=== PATIENT | male | born 1995 | race African-American/Black ===

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

== ENCOUNTER 2017-01-16 12:22 | Emergency (ER) | payer SELFPAY ==
[~2017-01-16] VITALS: Ht 180.3 cm; Wt 79.4 kg
[~2017-01-16 12:22] MED LIST: CIPR500T94 PO
--- NOTE | 2017-01-16 12:42 | PHYS DOC ---
Past Medical History Past Medical History: No Pertinent History Past Surgical History: No Surgical History Alcohol Use: None Drug Use: None Adult General Chief Complaint Chief Complaint: SEXUALLY TRANSMITTED DISEASE HPI HPI Patient is a 21 year old male presents emergency department stating that of his sexual partners contacted him and told him that she had chlamydia. Patient states that he has 3 sexual partners. He states that he's been having green penile drainage for the last 3 days. He denies any fever, chills or any nausea vomiting. He states I'm here to be treated for sexual transmitted infections. Review of Systems Review of Systems Constitutional: Denies fever or chills [] Eyes: Denies change in visual acuity, redness, or eye pain [] HENT: Denies nasal congestion or sore throat [] Respiratory: Denies cough or shortness of breath [] Cardiovascular: No additional information not addressed in HPI [] GI: Denies abdominal pain, nausea, vomiting, bloody stools or diarrhea [] : Denies dysuria or hematuria [] Musculoskeletal: Denies back pain or joint pain [] Integument: Denies rash or skin lesions [] Neurologic: Denies headache, focal weakness or sensory changes [] Endocrine: Denies polyuria or polydipsia [] Current Medications Current Medications Current Medications Medications (Trade) Dose Ordered Sig/Ana Luisa Start Time Stop Time Status Last Admin Dose Admin Azithromycin (Zithromax) 1,000 mg 1X ONCE 01/16/17 12:45 01/16/17 12:48 DC Ceftriaxone Sodium (Rocephin Im) 250 mg 1X ONCE 01/16/17 12:45 01/16/17 12:48 DC Metronidazole (Flagyl) 2,000 mg 1X ONCE 01/16/17 12:45 01/16/17 12:48 DC Allergies Allergies Allergies Coded Allergies Type Severity Reaction Last Updated Verified No Known Drug Allergies 02/08/16 No Physical Exam Physical Exam Constitutional: Well developed, well nourished, no acute distress, non-toxic appearance. [] HENT: Normocephalic, atraumatic, bilateral external ears normal, oropharynx moist, no oral exudates, nose normal. [] Eyes: PERRLA, EOMI, conjunctiva normal, no discharge. [] Neck: Normal range of motion, no tenderness, supple, no stridor. [] Cardiovascular:Heart rate regular rhythm, no murmur [] Lungs & Thorax: Bilateral breath sounds clear to auscultation [] Skin: Warm, dry, no erythema, no rash. [] Back: No tenderness Extremities: No tenderness, no cyanosis, no clubbing, ROM intact, no edema. [] Neurologic: Alert and oriented X 3, normal motor function, normal sensory function, no focal deficits noted. [] Psychologic: Affect normal, judgement normal, mood normal. [] Lesions noted no testicular tenderness noted. Exam completed with Julia GARIBAY at bedside Current Patient Data Vital Signs Vital Signs Date Time Temp Pulse Resp B/P (MAP) Pulse Ox O2 Delivery O2 Flow Rate FiO2 01/16/17 12:50 97.6 72 16 97 Room Air 97.6 Lab Values Laboratory Tests Test 01/16/17 12:50 Urine Collection Type Unknown Urine Color Yellow Urine Clarity Clear Urine pH 6.0 Urine Specific [place] 1.020 Urine Protein Negative mg/dL (NEG-TRACE) Urine Glucose (UA) Negative mg/dL (NEG) Urine Ketones (Stick) Negative mg/dL (NEG) Urine Blood Negative (NEG) Urine Nitrite Negative (NEG) Urine Bilirubin Negative (NEG) Urine Urobilinogen Dipstick 0.2 mg/dL (0.2 mg/dL) Urine Leukocyte Esterase Small (NEG) Urine RBC 0 /HPF (0-2) Urine WBC >40 /HPF (0-4) Urine Bacteria 0 /HPF (0-FEW) Urine Mucus Mod /LPF EKG EKG [] Radiology/Procedures Radiology/Procedures [] Course & Med Decision Making Course & Med Decision Making Pertinent Labs and Imaging studies reviewed. (See chart for details) Urine was positive for small amount leukocyte esterase. Patient will be placed on Cipro at discharge. He was instructed to refrain from sexual intercourse for the next 2 weeks and 2 weeks after each one of his partners have been treated. Patient was also instructed to use condoms to prevent sexually transmitted infections from occurring. Signs and symptoms to return emergency department was provided. Patient was instructed to drink plenty of fluids such as water and cranberry juice. Avoid coverages cocktail, coronary beverages, citrus fruits and alcohol sees her considered irritants to the bladder. Patient was also instructed to notify his sexual partners in regards to being treated for sexually transmitted infection. Dragon Disclaimer Dragon Disclaimer This electronic medical record was generated, in whole or in part, using a voice recognition dictation system. Departure Departure Impression: Primary Impression: Concern about STD in male without diagnosis Additional Impression: UTI (urinary tract infection) Disposition: 01 HOME, SELF-CARE Condition: STABLE Referrals: NO PCP (PCP) Patient Instructions: Sexually Transmitted Disease, [id number], Urinary Tract Infection, [id number] Additional Instructions: You've been treated for sexual transmitted infections as well as a urinary tract infection. You need to notify your sexual partners in regards to being treated for STD. Medication as prescribed. Avoid sexual activity for the next 2 weeks. It is advisable that you use condoms to prevent sexually transmitted infections. Drink plenty of fluids such as water and cranberry juice. Avoid cranberry juice cocktail, carbonated beverages, caffeine, alcohol, and citrus fruits disease are considered irritants to the bladder. Follow-up through primary care physician next 7-10 days. Return back to emergency prior signs symptoms of become worse. Scripts Ciprofloxacin Hcl (CIPRO) 500 Mg Tablet 1 TAB PO BID, #14 TAB Prov: SUSY ROMAN APRN 01/16/17 Problem Qualifiers SUSY ROMAN APRN January 16, 2017 12:42
[2017-01-16] MEDS ORDERED: cefTRIAXone IM 250 MG VIAL IM ONE (12:45)
[2017-01-16] MEDS ORDERED: AZITHROMYCIN 250 MG TABLET. PO ONE (12:45)
[2017-01-16] MEDS ORDERED: metroNIDAZOLE 500 MG TABLET PO ONE (12:45)
[2017-01-16 12:59] LABS: BILIRUBIN,URINE NEGATIVE (NEG); GLUCOSE,URINE NEGATIVE (NEG); NITRITE,URINE NEGATIVE (NEG); PROTEIN,URINE NEGATIVE (NEG-TRACE); UROBILINOGEN,URINE 0.2 mg/dL (0.2 mg/dL)
[2017-01-16 13:12] LABS: BACTERIA,URINE 0 /HPF (0-FEW); RBC,URINE 0 /HPF (0-2); WBC,URINE >40 /HPF (0-4)
[2017-01-16] MEDS ORDERED: CIPR500T94 PO (13:29)
== END 2017-01-16 13:50 | disposition home or self-care (01) ==
LOC: ER 12:54
DX: N39.0 Urinary tract infection, site not specified (principal)
CPT/HCPCS: 81001; 87086; 96372; 99284; J0696; Q0144

== ENCOUNTER 2017-08-31 15:37 | Emergency (ER) | payer SELFPAY ==
[2017-08-31 17:15] LABS: BILIRUBIN,URINE NEGATIVE (NEG); CLARITY,URINE CLEAR; COLOR,URINE YELLOW; GLUCOSE,URINE NEGATIVE (NEG); NITRITE,URINE NEGATIVE (NEG); PROTEIN,URINE NEGATIVE (NEG-TRACE); UROBILINOGEN,URINE 0.2 mg/dL (0.2 mg/dL)
[2017-08-31] MEDS: AZITHROMYCIN 250 MG TABLET. PO (17:21)
[2017-08-31] MEDS: cefTRIAXone IM 250 MG VIAL IM (17:22)
[2017-08-31 17:33] LABS: BACTERIA,URINE 0 /HPF (0-FEW); RBC,URINE 0 /HPF (0-2); WBC,URINE >40 /HPF (0-4)
== END 2017-08-31 17:43 | disposition home or self-care (01) ==
LOC: ER 15:37
DX: Z20.2 Contact with and (suspected) exposure to infections with a predominantly sexual mode of transmission (principal); N39.0 Urinary tract infection, site not specified
CPT/HCPCS: 36415; 81001; 87086; 87491; 87591; 96372; 99284-25; J0696; Q0144

== ENCOUNTER 2017-10-25 10:16 | Emergency (ER) | payer SELFPAY ==
[2017-10-25 11:12] LABS: BILIRUBIN,URINE NEGATIVE (NEG); CLARITY,URINE CLOUDY; COLOR,URINE YELLOW; GLUCOSE,URINE NEGATIVE (NEG); NITRITE,URINE NEGATIVE (NEG); PROTEIN,URINE NEGATIVE (NEG-TRACE)
[2017-10-25 11:28] LABS: WBC,URINE >40 /HPF (0-4)
[2017-10-25 11:31] LABS: BACTERIA,URINE FEW /HPF (0-FEW); RBC,URINE OCC /HPF (0-2)
[2017-10-25] MEDS: cefTRIAXone IM 250 MG VIAL IM (11:41)
[2017-10-25] MEDS: metroNIDAZOLE 500 MG TABLET PO (11:41)
[2017-10-25] MEDS: AZITHROMYCIN 250 MG TABLET. PO (11:41)
== END 2017-10-25 11:48 | disposition home or self-care (01) ==
LOC: ER 10:16
DX: Z11.3 Encounter for screening for infections with a predominantly sexual mode of transmission (principal)
CPT/HCPCS: 81001; 87491; 87591; 96372; 99284; J0696; Q0144

== ENCOUNTER 2018-06-23 13:49 | Emergency (ER) | payer SELFPAY ==
[~2018-06-23] VITALS: Ht 188 cm; Wt 79.4 kg
[~2018-06-23 13:49] MED LIST changes: +SULF1TAB24 PO
[2018-06-23 14:39] VITALS: BP 136/63
--- NOTE | 2018-06-23 15:00 | PHYS DOC ---
Past Medical History Past Medical History: No Pertinent History, STD Past Surgical History: No Surgical History Alcohol Use: None Drug Use: None Adult General Chief Complaint Chief Complaint: SEXUALLY TRANSMITTED DISEASE HPI HPI Patient is a 23 year old male with history of gonorrhea and chlamydia who presents today to be treated for STDs. Patient states he believes he got exposed. He states he has symptoms but will not mention what symptoms. He is laughing as we talk to him with the RN. Review of Systems Review of Systems Constitutional: Denies fever or chills [] GI: Denies abdominal pain, nausea, vomiting, bloody stools or diarrhea [] : Reports concern for STD Musculoskeletal: Denies back pain or joint pain [] Integument: Denies rash or skin lesions [] Neurologic: Denies headache, focal weakness or sensory changes [] All other systems were reviewed and found to be within normal limits, except as documented in this note. Current Medications Current Medications Current Medications Medications (Trade) Dose Ordered Sig/Ana Luisa Start Time Stop Time Status Last Admin Dose Admin Azithromycin (Zithromax) 1,000 mg 1X ONCE 06/23/18 14:45 06/23/18 14:47 DC Ceftriaxone Sodium (Rocephin Im) 250 mg 1X ONCE 06/23/18 14:45 06/23/18 14:47 DC Metronidazole (Flagyl) 2,000 mg 1X ONCE 06/23/18 14:45 06/23/18 14:47 DC Allergies Allergies Allergies Coded Allergies Type Severity Reaction Last Updated Verified No Known Drug Allergies 02/08/16 No Physical Exam Physical Exam Constitutional: Well developed, well nourished, no acute distress, non-toxic appearance. [] Abdomen: Bowel sounds normal, soft, no tenderness, no masses, no pulsatile masses. [] Skin: Warm, dry, no erythema, no rash. [] Back: No tenderness, no CVA tenderness. [] Extremities: No tenderness, no cyanosis, no clubbing, ROM intact, no edema. [] Neurologic: Alert and oriented X 3, normal motor function, normal sensory function, no focal deficits noted. [] Psychologic: Affect normal, judgement normal, mood normal. [] Current Patient Data Vital Signs Vital Signs Date Time Temp Pulse Resp B/P (MAP) Pulse Ox O2 Delivery O2 Flow Rate FiO2 06/23/18 14:39 98.0 72 18 136/63 (87) 100 Room Air 98.0 EKG EKG [] Radiology/Procedures Radiology/Procedures [] Course & Med Decision Making Course & Med Decision Making Pertinent Labs and Imaging studies reviewed. (See chart for details) This is a 23-year-old male patient with history of STDs who presents today requesting treatment. They shouldn't has been treated multiple times for STDs. We talked to him about using protection. I recommended he gets checked for HIV as well at the health department considering his multiple exposures to STDs. He was given Rocephin, azithromycin and Flagyl in the ED. He was unable to give us any urine. He was discharged to home and provided STD education again. Dragon Disclaimer Dragon Disclaimer This electronic medical record was generated, in whole or in part, using a voice recognition dictation system. Departure Departure Impression: Primary Impression: Concern about STD in male without diagnosis Disposition: 01 HOME, SELF-CARE Condition: STABLE Referrals: NO PCP (PCP) Follow-up with the health department for further STD concerns Patient Instructions: Sexually Transmitted Disease, [id number] Additional Instructions: You were treated in the emergency room for most common STDs including gonorrhea , chlamydia and Trichomonas. Use protection at all times, do not have sex for seven days. Contact all your sex partners, let them know you were treated for STDs and ask them to seek treatment too. Also consider being tested for HIV considering your multiple STD exposures. MADISON MCGEE APRN Jun 23, 2018 15:00
[2018-06-23] MEDS: AZITHROMYCIN 250 MG TABLET. PO ONE (15:09)
[2018-06-23] MEDS: metroNIDAZOLE 500 MG TABLET PO ONE (15:10)
[2018-06-23] MEDS: cefTRIAXone IM 250 MG VIAL IM ONE (15:11)
== END 2018-06-23 15:21 | disposition home or self-care (01) ==
LOC: ER 13:49
DX: Z20.2 Contact with and (suspected) exposure to infections with a predominantly sexual mode of transmission (principal)
CPT/HCPCS: 96372; 99283; J0696; Q0144

== ENCOUNTER 2021-12-10 02:43 | Emergency (ER) | payer SELFPAY ==
[2021-12-10] MEDS ORDERED: TRANEXAMIC ACID in NS IVPB 50 ML INJ ONE (03:00)
[2021-12-10] MEDS ORDERED: ETOMIDATE 20 MG/10 ML VIAL. IV ONE (03:00)
[2021-12-10] MEDS ORDERED: DIPHTH,PERTUSS(ACELL),TET TOX 0.5 ML DISP.SYRIN. VAX IM ONE (03:00)
[2021-12-10 03:17] LABS: BASO % 0 % (0-3); EOS # 0.1 x10^3/uL (0.0-0.7); EOS % 1 % (0-3); HEMATOCRIT 37.6 % (39.0-53.0); HEMOGLOBIN 12.6 g/dL (13.0-17.5); LYMPH # 2.9 x10^3/uL (1.0-4.8); LYMPH % 32 % (24-48); MEAN CORPUSCULAR HEMOGLOBIN 31 pg (25-35); MEAN CORPUSCULAR HGB CONC 33 g/dL (31-37); MEAN CORPUSCULAR VOLUME 94 fL (79-100); MONO # 0.4 x10^3/uL (0.0-1.1); MONO % 5 % (0-9); NEUT # 5.6 x10^3/uL (1.8-7.7); NEUT % 63 % (31-73); PLATELET COUNT 108 x10^3/uL (140-400); RED CELL DISTRIBUTION WIDTH 13.7 % (11.5-14.5)
[2021-12-10 03:28] LABS: PROTHROMBIN TIME PATIENT 19.5 SEC (11.7-14.0)
[2021-12-10] MEDS ORDERED: KETAMINE HCL 500 MG/10 ML VIAL. ONE (03:30)
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
[2021-12-10 03:41] LABS: ALBUMIN 3.1 g/dL (3.4-5.0); CALCIUM 8.2 mg/dL (8.5-10.1); CREATININE 1.9 mg/dL (0.7-1.3); TOTAL BILIRUBIN 0.3 mg/dL (0.2-1.0); TOTAL PROTEIN 6.1 g/dL (6.4-8.2)
[2021-12-10 03:45] LABS: POTASSIUM 2.4 mmol/L (3.5-5.1)
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
[2021-12-10 04:15] VITALS: BP 66/49
== END 2021-12-10 04:15 | disposition short-term general hospital (02) ==
LOC: ER 02:43
DX: S01.83XA Puncture wound without foreign body of other part of head, initial encounter (principal); J96.01 Acute respiratory failure with hypoxia; R57.8 Other shock; F17.200 Nicotine dependence, unspecified, uncomplicated; W34.09XA Accidental discharge from other specified firearms, initial encounter; Y93.89 Activity, other specified; Y92.89 Other specified places as the place of occurrence of the external cause; Y99.8 Other external cause status
CPT/HCPCS: 31500; 36415; 36430; 71045; 80053; 85025; 85610; 85730; 86850; 86900; 86901; 86920; 86927; 99291; G0390; G0480; J3490; P9016; P9017; 94002